=== PATIENT | female | born 1965 | race Caucasian/White ===

== ENCOUNTER 2016-07-15 14:14 | Emergency (ER) | payer OTHER ==
[~2016-07-15] VITALS: Wt 74.0 kg
[~2016-07-15 14:14] MED LIST: ACET325T45 PO; IBUP-1542 PO
[2016-07-15] MEDS ORDERED: KETOROLAC 30 MG INJ IM STA (15:39)
--- NOTE | 2016-07-15 16:27 | RADRPT ---
PROCEDURE: XR left hand. CLINICAL INDICATION: Hand pain /swelling/bruising TECHNIQUE: Three views are available for review. COMPARISON: No prior studies are available for comparison. FINDINGS: The osseous structures are normal in mineralization, architecture and alignment. No fracture or oss eous lesion is identified. The joints are unremarkable. The soft tissues are unremarkable. IMPRESSION: Unremarkable examination. RPTAT: HGDB .Mike Sullivan MD, MD Date Time Electronically viewed and signed by .Mike Sullivan MD, on 07/15/2016 16:27 .B/
[2016-07-15] MEDS ORDERED: IBUP-1542 PO (16:45)
--- NOTE | 2016-07-15 16:55 | ERD ---
ER Documentation Chief Complaint Date/Time DATE: 07/15/16 TIME: 16:46 Chief Complaint LEFT HAND PAIN AND THUMB ECCHYMOSIS FOR 3 DAYS. NO DEFORMITY HPI Patient is a 50-year-old female who presents to the emergency department with left hand pain and ecchymosis x3 days. Patient states that the ecchymosis has been spreading in size. Patient denies any trauma or falls. She states that she became concerned given that the pain started spreading up her left arm this morning. The pain is intermittent. Patient denies any loss of range of motion. Patient denies any numbness or tingling. Patient is unsure she slept awkwardly on her arm. Patient denies any fever, chills, nausea, vomiting, chest pain, shortness of breath, jaw pain, shoulder pain, diaphoresis or loss of consciousness. Patient denied any unilateral arm swelling, recent surgeries or OCP use. ROS All systems reviewed and are negative except as per history of present illness. Medications Home Meds Active Scripts Ibuprofen* (Motrin*) 600 Mg Tab, 600 MG PO Q6, #30 TAB Prov:BELKIS NGUYEN PA-C 07/15/16 Acetaminophen* (Acetaminophen*) 325 Mg Tablet, 325 MG PO Q4H Y for PAIN AND OR ELEVATED TEMP, #10 TAB Prov:JACKELYN LEE DO 07/01/15 Ibuprofen* (Ibuprofen*) 600 Mg Tablet, 600 MG PO Q8, #10 TAB Prov:JACKELYN LEE DO 07/01/15 Allergies Allergies: Coded Allergies: Penicillins (Verified Allergy, Unknown, 07/01/15) PMhx/Soc Medical and Surgical Hx: pt denies Medical Hx, pt denies Surgical Hx Hx Alcohol Use: No Hx Substance Use: No Hx Tobacco Use: No Smoking Status: Never smoker Physical Exam Vitals Vital Signs Date Time Temp Pulse Resp B/P Pulse Ox O2 Delivery O2 Flow Rate FiO2 07/15/16 17:22 82 18 139/81 97 Room Air 07/15/16 14:17 98.8 75 21 144/84 97 Physical Exam GENERAL: Well-developed, well-nourished female. Appears in no acute distress. HEAD: Normocephalic, atraumatic. EYES: Pupils are equally reactive bilaterally. EOMs grossly intact. No conjunctival erythema. ENT: Moist mucous membranes. No uvula deviation. No kissing tonsils. NECK: Supple. No lymphadenopathy or thyromegaly. No meningismus. LUNG: Clear to auscultation bilaterally. No rhonchi, wheezing, rales or coarse breath sounds. Left upper chest wall tender to palpation. Pain is reproducible with palpation. HEART: Regular rate and rhythm. No murmurs, rubs or gallops. BACK: No midline tenderness. EXTREMITIES: Equal pulses bilaterally. No peripheral clubbing, cyanosis or edema. No unilateral leg swelling. NEUROLOGIC: Alert and oriented. Moving all four extremities without any difficulty. Normal speech. Steady gait. LEFT ARM: No deformity, erythema, or swelling. +Ecchymosis noted to thenar aspect of hand. Tender to palpation over the thenar aspect of hand. Skin intact. Full ROM of all fingers, wrist, elbow, shoulder. She is able to pronate and supinate without any difficulty. Sensation intact to light touch. Neurovascularly intact. (Able to give thumbs up, make an ok sign, cross digits 2 and 3, thumb to pinky opposition. 2+ RP.) No snuffbox tenderness. Negative Tinel sign. Negative Phalen sign. Results 24 hrs Current Medications Medications (Trade) Dose Ordered Sig/Kristi Route PRN Reason Start Time Stop Time Status Last Admin Dose Admin Ketorolac Tromethamine (Toradol) 30 mg ONCE STAT IM 07/15/16 15:39 07/15/16 15:40 DC Procedures/MDM ED COURSE: The patient was stable throughout ED course. I kept the patient and/or family informed of laboratory and diagnostic imaging results throughout the ED course. EKG: Read by Dr. Muñoz, attending physician. EKG shows normal sinus rhythm at a rate of 77 bpm No arrhythmias, acute ST elevations or T wave changes were noted. DIAGNOSTIC IMAGING: Read by radiologist. DIAGNOSTIC IMAGING REPORT Patient: KRISTINA HAMMER : 1965 Age: 50 Sex: F MR #: [id number] DOS: 07/15/16 1533 Ordering MD: BELKIS NGUYEN PA-C Location: [facility] Room/Bed: PROCEDURE: XR left hand. CLINICAL INDICATION: Hand pain /swelling/bruising TECHNIQUE: Three views are available for review. COMPARISON: No prior studies are available for comparison. FINDINGS: The osseous structures are normal in mineralization, architecture and alignment. No fracture or osseous lesion is identified. The joints are unremarkable. The soft tissues are unremarkable. IMPRESSION: Unremarkable examination. RPTAT: HGDB .Mike Sullivan MD, MD Date Time Electronically viewed and signed by .Mike Sullivan MD, MD on 07/15/2016 16:27 .B/ CC: BELKIS NGUYEN PA-C MEDICATIONS GIVEN: She was offered pain medication here in the emergency department, however she declined. MEDICAL DECISION MAKING: This is a 50-year-old female who presents with ecchymosis and pain to the thenar aspect of her left hand x 3 days. Patient denies any trauma or falls. Patient denied any numbness, tingling, chest pain, shortness of breath, diaphoresis. Vital signs were reviewed. Patient was afebrile. Given that the patient had some tenderness to palpation of the left upper chest wall, an EKG was obtained. EKG was unremarkable. Low suspicion for ACS, arrhythmia, pericarditis. X-ray of the hand was unremarkable. Given these findings, the patients presentation is most consistent with hand strain. I have a much lower clinical concern for dislocation, carpal fracture, scaphoid fracture, metacarpal fracture, phalanx fracture, Boxers fracture, boutonnieres deformity, mallet finger, gout, carpal tunnel, DVT, osteoarthritis, osteomyelitis or compartment syndrome. PRESCRIPTIONS: Ibuprofen DISCHARGE: At this time, patient is stable for discharge and outpatient management. RICE therapy and ROM exercises were advised to avoid stiffness. I have instructed the patient to follow-up with his/her primary care physician in 1-2 days. I have discussed with the patient the possibility of needing to see an international marketing specialist for further workup and imaging if the pain persists. I have instructed the patient to promptly return to the ER for any new or worsening symptoms including increased pain, swelling, redness, warmth or fever. The patient and/or family expressed understanding of and agreement with this plan. All questions were answered. Home care instructions were provided. Departure Diagnosis: Primary Impression: Hand sprain Encounter type: initial encounter Laterality: left Qualified Code: S63.92XA - Hand sprain, left, initial encounter Condition: Stable Patient Instructions: Sprain Hand Additional Instructions: Call your primary care doctor TOMORROW for an appointment during the next 1-2 days.See the doctor sooner or return here if your condition worsens before your appointment time. Unable to rule out any ligamentous or tendon injuries at this time. If the pain persists patient may need to follow-up with an international marketing specialist for further management of her pain. BELKIS NGUYEN PA-C Jul 15, 2016 16:55
[2016-07-15 17:22] VITALS: BP 139/81; PULSE 82; RESP 18
== END 2016-07-15 17:25 | disposition home or self-care (01) ==
LOC: FTE 14:14
DX: S63.92XA Sprain of unspecified part of left wrist and hand, initial encounter (principal); M79.642 Pain in left hand; X58.XXXA Exposure to other specified factors, initial encounter; Y92.9 Unspecified place or not applicable
CPT/HCPCS: 93005; J1885

== ENCOUNTER 2017-04-15 22:22 | Emergency (ER) | payer OTHER ==
[~2017-04-15] VITALS: Ht 160 cm; Wt 76.6 kg
[2017-04-15 22:32] VITALS: Ht 160 cm; Wt 76.6 kg
--- NOTE | 2017-04-16 01:32 | ERD ---
ER Documentation Chief Complaint Chief Complaint pt reports she was cleaning with clorox and turned on hot water inhaling st HPI 51-year-old female presents here to emergency department for complaints of excessive coughing and chest pain after inhaling steam from hot water after cleaning the bathtub with a Clorox. Patient was cleaning the afternoon, started excessively coughing afterwards. Fioricet afterward, she started to have a chest pain, sharp pain, 4/10 scale, worse upon taking a deep breath. Patient denies any fever or chills. Patient denies any dyspnea on exertion or being dizzy, dyspnea on lying down. ROS All systems reviewed and are negative except as per history of present illness. Medications Home Meds Active Scripts Ibuprofen* (Motrin*) 600 Mg Tab, 600 MG PO Q6, #30 TAB Prov:BELKIS NGUYEN PA-C 07/15/16 Acetaminophen* (Acetaminophen*) 325 Mg Tablet, 325 MG PO Q4H Y for PAIN AND OR ELEVATED TEMP, #10 TAB Prov:JACKELYN LEE DO 07/01/15 Ibuprofen* (Ibuprofen*) 600 Mg Tablet, 600 MG PO Q8, #10 TAB Prov:ROSAJACKELYN DO 07/01/15 Allergies Allergies: Coded Allergies: Penicillins (Verified Allergy, Unknown, 04/16/17) PMhx/Soc Medical and Surgical Hx: pt denies Medical Hx, pt denies Surgical Hx History of Surgery: No Anesthesia Reaction: No Hx Neurological Disorder: No Hx Respiratory Disorders: No Hx Cardiac Disorders: No Hx Psychiatric Problems: No Hx Miscellaneous Medical Probl: No Hx Alcohol Use: No Hx Substance Use: No Hx Tobacco Use: No Smoking Status: Never smoker FmHx Family History: No coronary disease, No diabetes, No other Physical Exam Vitals Vital Signs Date Time Temp Pulse Resp B/P Pulse Ox O2 Delivery O2 Flow Rate FiO2 04/16/17 01:59 63 20 98 21 04/15/17 22:32 98.2 78 16 129/81 98 Physical Exam GENERAL: The patient is well developed and appropriate for usual state of health, in no apparent distress. CHEST: Clear to auscultation bilaterally. There are no rales, wheezes or rhonchi. HEART: Regular rate and rhythm. No murmurs, clicks, rubs or gallops. No S3 or S4. ABDOMEN: Soft, nontender and nondistended. Good bowel sounds. No rebound or guarding. No gross peritonitis. No gross organomegaly or masses. No Vasquez sign or McBurney point tenderness. BACK: No midline or flank tenderness. EXTREMITIES: Equal pulses bilaterally. There is no peripheral clubbing, cyanosis or edema. No focal swelling or erythema. Full range of motion. Grossly neurovascularly intact. NEURO: Alert and oriented. Cranial nerves 2-12 intact. Motor strength in all 4 extremities with 5/5 strength. Sensation grossly intact. Normal speech and gait. SKIN: There is no apparent rash or petechia. The skin is warm and dry. HEMATOLOGIC AND LYMPHATIC: There is no evidence of excessive bruising or lymphedema. No gross cervical, axillary, or inguinal lymphadenopathy. Results 24 hrs Current Medications Medications (Trade) Dose Ordered Sig/Kristi Route PRN Reason Start Time Stop Time Status Last Admin Dose Admin Albuterol (Proventil 0.083% (Neb)) 5 mg ONCE RESP THERAPY STAT NEB 04/16/17 01:41 04/16/17 01:42 DC 04/16/17 01:54 Ipratropium Shattuck (Atrovent 0.02% (Neb)) 0.5 mg ONCE RESP THERAPY STAT NEB 04/16/17 01:41 04/16/17 01:42 DC 04/16/17 01:54 EKG was done, read by me and is normal sinus rhythm at a rate of 68, normal axis , there is no ST changes or changes in the EKG that indicates any cardiac emergencies at this time. Patient's EKG was also reviewed by Dr. Perdomo. Impression: no acute findings on EKG Poison control was contacted, recommended to give bronchodilators, albuterol and Atrovent was given here in the emergency department to dilate bronchioles. PROCEDURE: XR Chest. CLINICAL INDICATION: Pain. Cough. Ingested coin thorax.. TECHNIQUE: Single frontal chest x-ray. COMPARISON: None. FINDINGS: The cardiomediastinal silhouette is unremarkable. There is no congestive heart failure.. There is hypoventilation. There is right basilar atelectasis versus infiltrate.. There is no pleural effusion. There is no pneumothorax. The osseous structures are unremarkable. IMPRESSION: Hypoventilation. Right basilar atelectasis versus infiltrate. RPTAT: HMVK .Anjum Brooks MD, MD Date Time Electronically viewed and signed by .Anjum Brooks MD, MD on 04/16/2017 02:43 .K/ CC: KEESHA CARREON NP Procedures/MDM Medical Decision Making: Symptoms most likely is consistent with chemical inhalation, feels much better after bronchodilators. Patient also has an incidental finding of possible right lobe infiltrate, will treat patient with this. There is low suspicion for cardiopulmonary emergencies at this time. Patient has low risk factors. EKG is normal, there is no changes in the EKG that indicates cardiac emergencies. Chest X-ray does not show cardiopulmonary emergencies at this time. There is low suspicion for aortic aneurysm, myocardial infarction, pneumothorax, pleural effusion, pulmonary embolism, or any other cardiopulmonary emergencies at this time. Prescription was given for azithromycin, guaifenesin with codeine, albuterol, is advised to follow-up with primary care doctor in 2-3 days for reevaluation of symptoms. Patient was advised to return for any worsening symptoms Dispostion: Home. Stable Disclaimer: Inadvertent spelling and grammatical errors are likely due to EHR/ dictation software use and do not reflect on the overall quality of patient care. Also, please note that the electronic time recorded on this note does not necessarily reflect the actual time of the patient encounter. Departure Diagnosis: Primary Impression: Exposure to chemical inhalation Additional Impression: Pneumonia Pneumonia type: due to unspecified organism Laterality: right Lung location : unspecified part of lung Qualified Code: J18.9 - Pneumonia of right lung due to infectious organism, unspecified part of lung Condition: Stable Patient Instructions: Chemical Inhalation, Pneumonia (Adult) KEESHA CARREON NP Apr 16, 2017 01:32
[2017-04-16] MEDS ORDERED: ALBUTEROL 0.083% (NEB) 2.5 MG/3 ML AMP NEB STA (01:41)
[2017-04-16] MEDS ORDERED: IPRATROPIUM (NEB) 0.5 MG/2.5 ML AMP NEB STA (01:41)
--- NOTE | 2017-04-16 02:43 | RADRPT ---
PROCEDURE: XR Chest. CLINICAL INDICATION: Pain. Cough. Ingested coin thorax.. TECHNIQUE: Single frontal chest x-ray. COMPARISON: None. FINDINGS: The cardiomediastinal silhouette is unremarkable. There is no congestive heart failure.. There is h ypoventilation. There is right basilar atelectasis versus infiltrate.. There is no pleural effusion . There is no pneumothorax. The osseous structures are unremarkable. IMPRESSION: Hypoventilation. Right basilar atelectasis versus infiltrate. RPTAT: HMVK .Anjum Brooks MD, MD Date Time Electronically viewed and signed by .Anjum Brooks MD, MD on 04/16/2017 02:43 .K/
[2017-04-16] MEDS ORDERED: AZIT250T94 PO (02:51)
[2017-04-16] MEDS ORDERED: GUAI473L22 PO (02:51)
[2017-04-16] MEDS ORDERED: ALBU8.5H3 INH (02:51)
== END 2017-04-16 03:06 | disposition home or self-care (01) ==
LOC: FTE 22:22
DX: T65.91XA Toxic effect of unspecified substance, accidental (unintentional), initial encounter (principal); J18.9 Pneumonia, unspecified organism; R07.9 Chest pain, unspecified
CPT/HCPCS: 71010; 93005; 94664; Z7502; Z7610

== ENCOUNTER 2018-06-23 06:08 | Emergency (ER) | payer SELFPAY ==
[~2018-06-23] VITALS: Ht 157.5 cm; Wt 70.1 kg
[~2018-06-23 06:08] MED LIST changes: +ALBU8.5H8 INH; +AZIT250T PO; +GUAI473L22 PO
[2018-06-23 06:11] VITALS: Ht 157.5 cm; Wt 70.1 kg
[2018-06-23] MEDS ORDERED: ONDANSETRON 4 MG INJ IV STA (06:33)
[2018-06-23] MEDS ORDERED: KETOROLAC 15 MG INJ IV STA (06:33)
[2018-06-23] MEDS: ONDANSETRON 4 MG INJ IV STA ×2 (08:03→08:12)
[2018-06-23] MEDS: morphine 4 MG/ML VIAL IV STA ×2 (08:03→08:12)
--- NOTE | 2018-06-23 08:12 | ERD ---
ER Documentation Chief Complaint Chief Complaint ABD PAIN WITH N/V/D X1WK HPI 52-year-old female complaining of right upper quadrant abdominal pain times 1 week. Patient states the pain is intermittent, sharp, worse after eating. She has been vomiting nonstop since last night. She also has diarrhea. She has not taken any medication for pain at home. Denies fever or chills. Patient reports history of prediabetes, but denies any other medical history. ROS All systems reviewed and are negative except as per history of present illness. Medications Home Meds Active Scripts Hydrocodone/Acetaminophen ([place] 5-325 Tablet) 1 Each Tablet, 1 TAB PO Q6H PRN for PAIN, #5 TAB Prov:VERN LANG. [employer] 06/23/18 Ibuprofen* (Motrin*) 600 Mg Tab, 600 MG PO Q6H PRN for PAIN AND OR ELEVATED TEMP, #30 TAB Prov:VERN LANG. [employer] 06/23/18 Azithromycin* (Zithromax*) 250 Mg Tablet, 250 MG PO .ZPACK DIRECTED, #6 TAB TAKE 500 MG (2 TABS) THE FIRST DAY THEN 250 MG (1 TAB) DAYS 2-5 Prov:KEESHA CARREON [employer] 04/16/17 Albuterol Sulfate* (Proair HFA*) 8.5 Gm Hfa.aer.ad, 2 PUFF INH Q4H PRN for WHEEZING AND SOB, #1 INHALER Prov:KEESHA CARREON NP 04/16/17 Guaifenesin-Codeine Phosphate* (Guaifenesin* AC Cough Syrup) 473 Ml Liquid, 10 ML PO Q4H PRN for COUGH, #120 ML Prov:KEESHA CARREON NP 04/16/17 Ibuprofen* (Motrin*) 600 Mg Tab, 600 MG PO Q6, #30 TAB Prov:BELKIS NGUYEN PA-C 07/15/16 Acetaminophen* (Acetaminophen*) 325 Mg Tablet, 325 MG PO Q4H PRN for PAIN AND OR ELEVATED TEMP, #10 TAB Prov:JACKELYN LEE DO 07/01/15 Ibuprofen* (Ibuprofen*) 600 Mg Tablet, 600 MG PO Q8, #10 TAB Prov:JACKELYN LEE DO 07/01/15 Allergies Allergies: Coded Allergies: Penicillins (Verified Allergy, Unknown, 06/23/18) PMhx/Soc Medical and Surgical Hx: pt denies Medical Hx, pt denies Surgical Hx History of Surgery: No Anesthesia Reaction: No Hx Neurological Disorder: No Hx Respiratory Disorders: No Hx Cardiac Disorders: No Hx Psychiatric Problems: No Hx Miscellaneous Medical Probl: No Hx Alcohol Use: No Hx Substance Use: No Hx Tobacco Use: No Smoking Status: Never smoker Physical Exam Vitals Vital Signs Date Temp Pulse Resp B/P (MAP) Pulse Ox O2 O2 Flow FiO2 Time Delivery Rate 06/23/18 97.6 83 17 95/54 (68) Room Air 13:08 06/23/18 98.2 64 19 104/52 98 Room Air 12:21 (69) 06/23/18 98.3 92 19 130/64 98 06:11 (86) Physical Exam General: Well-developed, well-nourished, conscious and coherent, in no distress Skin: Warm and dry without rash, good texture and turgor Head: Normocephalic without evidence of trauma Chest: Normal AP diameter. Good expansion without retractions. Nontender. Lungs are clear to auscultate bilaterally with good tidal volume Heart: Regular rate and rhythm. No murmur, rub, or gallops heard Abdomen: Soft, right upper quadrant tenderness without masses, guarding, or rebound. Bowel sounds are active. No hepatosplenomegaly Back: Without spinal or CVA tenderness Extremities: Full range of motion. Good strength bilaterally. No erythema, ecchymosis, or edema. Peripheral pulses are intact. Sensation intact Neuro: Alert and oriented 4, GCS 15. Psych: Normal mood and affect Result Diagram: 06/23/18 0655 06/23/18 0654 Results 24 hrs Laboratory Tests Test 06/23/18 06:54 06/23/18 06:55 06/23/18 07:42 Urine Color COLORLESS Urine Clarity CLEAR Urine pH 7.0 Urine Specific [place] 1.001 Urine Ketones NEGATIVE mg/dL Urine Nitrite NEGATIVE mg/dL Urine Bilirubin NEGATIVE mg/dL Urine Urobilinogen NEGATIVE mg/dL Urine Leukocyte Esterase NEGATIVE Rebekah/ul Urine Microscopic RBC 0 /HPF Urine Microscopic WBC 0 /HPF Urine Hemoglobin 2+ mg/dL Urine Glucose NEGATIVE mg/dL Urine Total Protein NEGATIVE mg/dl Sodium Level 134 mmol/L Potassium Level 3.8 mmol/L Chloride Level 98 mmol/L Carbon Dioxide Level 26 mmol/L Anion Gap 10 Blood Urea Nitrogen 6 mg/dl Creatinine 0.37 mg/dl Est Glomerular Filtrat > 60 mL/min Rate mL/min Glucose Level 132 mg/dl Calcium Level 9.2 mg/dl Total Bilirubin 1.2 mg/dl Direct Bilirubin 0.00 mg/dl Indirect Bilirubin 1.2 mg/dl Aspartate Amino 26 IU/L Transf (AST/SGOT) Alanine 25 IU/L Aminotransferase (ALT/SGPT) Alkaline Phosphatase 133 IU/L Troponin I < 0.012 ng/ml Total Protein 7.9 g/dl Albumin 4.4 g/dl Globulin 3.50 g/dl Albumin/Globulin Ratio 1.25 Lipase 56 U/L White Blood Count 6.9 10^3/ul Red Blood Count 4.31 10^6/ul Hemoglobin 13.1 g/dl Hematocrit 39.2 % Mean Corpuscular Volume 91.0 fl Mean Corpuscular Hemoglobin 30.4 pg Mean Corpuscular 33.4 g/dl Hemoglobin Concent Red Cell Distribution Width 12.5 % Platelet Count 222 10^3/UL Mean Platelet Volume 10.8 fl Immature Granulocytes % 0.100 % Neutrophils % 82.4 % Lymphocytes % 13.2 % Monocytes % 4.0 % Eosinophils % 0.0 % Basophils % 0.3 % Nucleated Red Blood Cells % 0.0 /100WBC Immature Granulocytes # 0.010 10^3/ul Neutrophils # 5.7 10^3/ul Lymphocytes # 0.9 10^3/ul Monocytes # 0.3 10^3/ul Eosinophils # 0.0 10^3/ul Basophils # 0.0 10^3/ul Nucleated Red Blood Cells # 0.0 10^3/ul POC Beta HCG, Qualitative NEGATIVE Current Medications Medications Dose Sig/Kristi Start Time Status Last (Trade) Ordered Route PRN Stop Time Admin Dose Reason Admin Ondansetron 4 mg ONCE STAT 06/23/18 DC 06/23/18 HCl (Zofran IV 06:33 06:53 Inj) 06/23/18 06:35 Ketorolac 15 mg ONCE STAT 06/23/18 DC 06/23/18 Tromethamine IV 06:33 07:47 (Toradol) 06/23/18 06:35 Morphine 4 mg ONCE STAT 06/23/18 DC Sulfate IV 08:03 (morphine) 06/23/18 08:04 Ondansetron 4 mg ONCE STAT 06/23/18 DC HCl (Zofran IV 08:03 Inj) 06/23/18 08:04 Sodium 1,000 ml @ Q1H ONCE 06/23/18 DC 06/23/18 Chloride 1,000 mls/hr IV 08:30 08:09 06/23/18 09:29 Lorazepam 1 mg ONCE ONCE 06/23/18 DC 06/23/18 (Ativan) IV 11:00 11:39 06/23/18 11:01 PROCEDURE: US Abdomen. CLINICAL INDICATION: abdominal pain TECHNIQUE: Multiple real-time images were acquired of the patient's right uppe r quadrant abdomen and retroperitoneum utilizing a high resolution transducer. COMPARISON: None FINDINGS: The liver demonstrates increased echogenicity. The liver is normal in size and no focal solid lesions are seen. The liver measures 15.2 cm in length. The portal vein is patent with normal direction of flow. No intrahepatic biliary dilatation is seen. There is a 3 cm impacted calcified stone within the gallbladder. There is no pericholecystic fluid or gallbladder wall thickening. The common bile duct measures 10 mm in maximal dimension. The visualized portions of the pancreas are unremarkable. The tail of the pancreas is not seen. No free fluid is identified. The right kidney is normal in size, and demonstrate normal echogenicity and cortical thickness. The right kidney measures 10.9 cm in long dimension. There is no evidence of hydronephrosis. There are no kidney stones. RPTAT: AA IMPRESSION: 3 cm impacted calcified stone within the gallbladder. Fatty infiltration of the liver. Dilated CBD. .Miki Winston MD, MD Date Time Electronically viewed and signed by .Miki Winston MD, MD on 06/23/2018 07:37 .S/ CC: VERN LANG [employer] Procedures/MDM 52-year-old female presents the ED was right upper quadrant abdominal pain, vomiting, or diarrhea. Workup is done to rule out cholecystitis, hepatitis, and IN CBC: no e/o of systemic infection or severe anemia CMP: no e/o severe acidosis, alkalosis, renal failure, diabetic ketoacidosis, liver disease Lipase: no e/o pancreatitis Troponin: no e/o acute ischemia Urine: no e/o acute infection or hematuria EKG: Rate/Rhythm: Normal Sinus Rhythm QRS, ST, T-waves: No changes consistent w/ acute ischemia Impression: No evidence of ischemia or arrhythmia Right upper quadrant ultrasound showed a 3 cm impacted stone in the gallbladder without signs of gallbladder wall thickening. Dilated common bile duct of 10 mm. Patient is given Toradol and Zofran IV. Patient still reports pain after Toradol. Morphine IV was given. Patient also given 1 L of normal saline bolus. Patient does not have a sinus cholecystitis, pancreatitis, or IN. However, give n her dilated common bile duct, and continued pain, I discussed with my attending Dr. Guan regarding admitted the patient for pain management and further evaluation. Dr. Guan agrees with the plan. Disclaimer: Inadvertent spelling and grammatical errors are likely due to EHR/dictation software use and do not reflect on the overall quality of patient care. Also, please note that the electronic time recorded on this note does not necessarily reflect the actual time of the patient encounter. Addendum: I am informed by Dr. Guan that the surgeon construction executive does not want to accept the patient for admission before patient had received MRCP. MRCP was done in the ED. No common bile duct obstruction is noted. Dr. Guan instructed to discharge patient home for outpatient management. Patient is reexamined before discharge home, and reports that she remains pain- free at this time. I advised patient to follow-up with her PCP for general surgery referral. Also advised patient to eat low-fat diet to prevent recurrence of her right upper quadrant pain. Patient also advised to return to ED if her pain returned and the pain is not resolved with p.o. meds, or she has nausea and vomiting and unable to maintain p.o. intake, or any the symptoms accompanied by fever. Patient and family expressed understanding of the plan. Departure Diagnosis: Primary Impression: Common bile duct dilatation Additional Impressions: RUQ abdominal pain Cholelithiasis Condition: Stable VERN LANG NP Jun 23, 2018 08:12
[2018-06-23] MEDS ORDERED: SOD CHLORIDE 0.9% 1,000 ML IV ONE (08:30)
[2018-06-23] MEDS ORDERED: LORAZEPAM 2 MG INJ IV ONE (11:00)
[2018-06-23] MEDS ORDERED: IBUP-1542 PO (12:48)
[2018-06-23 13:08] VITALS: BP 95/54; PULSE 83; RESP 17
[2018-06-23] MEDS ORDERED: HYDR-4011 PO (13:13)
== END 2018-06-23 13:15 | disposition home or self-care (01) ==
LOC: FTE 06:08
DX: K83.8 Other specified diseases of biliary tract (principal); K80.20 Calculus of gallbladder without cholecystitis without obstruction; R40.2412 Glasgow coma scale score 13-15, at arrival to emergency department
CPT/HCPCS: 36415; 74181; 76705; 80053; 81001; 81025; 83690; 84484; 85025; 93005; 96361; 96374; 96375; 99285; J1885; J2060; J2270; J2405; J7030